=== PATIENT | male | born 1955 | race Caucasian/White ===

== ENCOUNTER 2018-03-14 21:00 | Inpatient (IN) | payer MEDICAID ==
[~2018-03-14] VITALS: Ht 170.2 cm; Wt 86.2 kg
[2018-03-14 21:24] VITALS: BP 156/74
--- NOTE | 2018-03-14 21:24 | NUR ---
TO BED # 6 AMBULATORY, REPORT GIVEN TO MARCI GUTHRIE.
--- NOTE | 2018-03-14 21:45 | NUR ---
PT BIB SON TO ED FOR EVALUATION OF N/V/D X 1 HR. PT STATED ATE LEFT OVER FOOD, THEN STARTED HAVING N/V/D. N/V X8, DIARRHEA X4. PT AAO X4, GCS 15, ABLE TO SPEAK WITH FULL COMPLETE SENTENCES. RESPIATIONS EVEN AND UNLABORED, BL LUNG CLEAR. SKIN WARM/PINK/DRY, +PMSC. ABDOMEN SOFT, NON DISTENDED, ACTIVE BOWEL SOUND X4, VSS, DR. ELAINE MADE AWARE OF PT STATUS. WILL CONTINUE TO MONITOR
[2018-03-14] MEDS ORDERED: NACL 0.9% 1,000 ML IV ONE ×2 (22:14→23:25)
[2018-03-14] MEDS ORDERED: ONDANSETRON 4 MG/2 ML VIAL IVP ONE (22:15)
--- NOTE | 2018-03-14 22:33 | NUR ---
Dr. Rankin evaluating patient at bedside.
[2018-03-14 22:53] LABS: HEMATOCRIT 47.9 % (36-52); HEMOGLOBIN 15.9 g/dL (12.0-18.0); MEAN CORPUSCULAR HEMOGLOBIN 32 pg (27-31); MEAN CORPUSCULAR HGB CONC 33 g/dL (33-37); MEAN CORPUSCULAR VOLUME 95.2 fL (80-94); PLATELET COUNT (AUTO) 250 K/uL (140-450); RED BLOOD CELL COUNT(AUTO) 5.03 MIL/uL (4.20-6.10); RED CELL DISTRIBUTION WIDTH 13.6 % (11.6-13.7); WHITE BLOOD COUNT (AUTO) 16.8 K/uL (4.8-10.8)
[2018-03-14 23:13] LABS: LYMPHOCYTES % (MANUAL) 3 % (20-46); MONOCYTES % (MANUAL) 8 % (5-12)
[2018-03-14 23:17] LABS: ALBUMIN 4.5 g/dL (3.4-5.0); ANION GAP 16.7 (8-16); CARBON DIOXIDE 27.9 mmol/L (21-32); CREATININE 1.3 mg/dL (0.7-1.3); POTASSIUM 4.6 mmol/L (3.5-5.1); TOTAL BILIRUBIN 0.3 mg/dL (0.0-1.0)
--- NOTE | 2018-03-14 23:23 | NUR ---
PT GCS 15, RESPIRATIONS EVEN AND UNLABORED. VSS, STATED NAESEA IMPROVED. WILL CONTINUE TO MONITOR
[2018-03-14] MEDS ORDERED: DICYCLOMINE 20 MG/2 ML VIAL IM ONE (23:25)
--- NOTE | 2018-03-14 23:48 | NUR ---
PT SENT TO CT VIA BED WITH TECH AAOX4
[2018-03-15] MEDS ORDERED: metroNIDAZOLE 500 MG/NS PREMIX 100 ML IV ONE (01:15)
[2018-03-15] MEDS ORDERED: ZOLPIDEM 5 MG TAB PO PRN (01:35)
[2018-03-15] MEDS ORDERED: HYDROcodone/APAP 5/325 MG 1 TAB TAB PO PRN (01:35)
[2018-03-15] MEDS ORDERED: DEXTROSE 50% 50 ML SYR IVP PRN (01:35)
[2018-03-15] MEDS ORDERED: DOCUSATE SODIUM 100 MG GELCAP PO PRN (01:35)
[2018-03-15] MEDS ORDERED: ACETAMINOPHEN 325 MG TAB PO PRN (01:35)
[2018-03-15] MEDS ORDERED: ONDANSETRON 4 MG/2 ML VIAL IM/IVP PRN (01:35)
[2018-03-15] MEDS ORDERED: LORazepam 2 MG/ML VIAL IM/IVP PRN (01:35)
[2018-03-15] MEDS ORDERED: METF1000 PO (01:50)
[2018-03-15] MEDS ORDERED: GLIP10TA12 PO (01:50)
[2018-03-15] MEDS ORDERED: LISI10TA11 PO (01:53)
[2018-03-15] MEDS ORDERED: NACL 0.9% 1,000 ML IV SCH (02:00)
--- NOTE | 2018-03-15 02:15 | NUR ---
Patient will be admitted to care of . Admited to TELE. Will go to room 106B. Belongings list completed. Report to DEENA GUTHRIE.
[2018-03-15 02:16] LABS: PROTHROMBIN TIME 12.3 secs (10.8-13.4)
[2018-03-15] MEDS ORDERED: ALBUTEROL SULFATE/IPRATROPIU 3 ML SOL IH PRN (02:20)
--- NOTE | 2018-03-15 02:30 | NUR ---
RECEIVED REPORT FROM CATALYST OPERATOR GASOLINE FOR CONTINUITY OF CARE. PT IS A/OX4, ON ROOM AIR, PORTUGUESE SPEAKING. PT AMBULATES WITH STEADY GAIT, AND SKIN IS PINK/WARM/DRY AND INTACT. PT IS ABLE TO MAKE NEEDS KNOWN, AND ABLE TO FOLLOW COMMANDS. LUNGS SOUNDS CLEAR, HR EVEN AND REGULAR. PT HAS 20G IV TO RIGHT AC, ASYMPTOMATIC AND INTACT. PT DENIES ANY PAIN AT THE MOMENT. VITAL SIGNS STABLE. NO SIGNS OF DISTRESS NOTED. PT POSITIONED FOR COMFORT. BED RAILS UP X2, BED IN LOWEST POSITION. CALL LIGHT WITHIN REACH. WILL CONTINUE TO MONITOR.
[2018-03-15 02:42] LABS: CHOL/HDL RATIO 2.5 (1-4.5); MAGNESIUM 1.5 mg/dL (1.8-2.4); PHOSPHORUS 4.5 mg/dL (2.5-4.9); THYROID STIMULATING HORMONE 3.21 uIU/mL (0.34-3.74)
[2018-03-15 03:00] VITALS: BP 102/67
[2018-03-15] MEDS ORDERED: MAG SULF 2000 MG/WATER PREMIX 50 ML IV ONE (03:00)
[2018-03-15] MEDS: LEVOFLOXACIN 750 MG/D5W PREMIX 150 ML IV SCH (03:00)
[2018-03-15] MEDS ORDERED: DEXT 5% / NACL 0.9% 500 ML IV ONE (03:00)
[2018-03-15 03:26] LABS: BARBITURATE, URINE NEG. ng/ml (NEG <=200); BENZODIAZEPINE, URINE NEG. ng/mL (NEG <=200); CANNABINOID, URINE NEG. ng/mL (NEG <=50); COCAINE, URINE NEG. ng/mL (NEG <=300); OPIATE, URINE NEG. ng/mL (NEG <=2000); PHENCYCLIDINE SCREEN,URINE NEG. ng/mL (NEG <=25)
[2018-03-15 03:30] LABS: APPEARANCE,URINE CLEAR (CLEAR); BILIRUBIN,URINE NEGATIVE (NEGATIVE); BLOOD, URINE TRACE-L (NEGATIVE); COLOR,URINE YELLOW (YELLOW); LEUKOCYTE ESTERASE ,URINE NEGATIVE (NEGATIVE); NITRITE, URINE NEGATIVE (NEGATIVE); PH,URINE 5.5 (5.0-9.0); UGLUCOSE 3+ (NEGATIVE)
[2018-03-15 03:32] LABS: CALCIUM OXALATE CRYSTALS,UR 0-5 /HPF (None Seen); RBC,URINE 0-5 (RARE) /HPF (0-5); WBC,URINE 0-5 (RARE) /HPF (0-5)
--- NOTE | 2018-03-15 04:00 | NUR ---
VITAL SIGNS STABLE. NO SIGNS OF DISTRESS NOTED. PT POSITIONED FOR COMFORT. BED RAILS UP X2, BED IN LOWEST POSITION. CALL LIGHT WITHIN REACH. WILL CONTINUE TO MONITOR.
[2018-03-15] MEDS ORDERED: PNEUMOCOCCAL VACCINE 23 MCG/0.5 ML VIAL IMVAC PRN (04:15)
--- NOTE | 2018-03-15 05:53 | NUR ---
ASKED PT IF HE HAD A BM YET TO COLLECT STOOL. PT DENIED HAVING BM SINCE 15MIN PRIOR TO ARRIVAL TO UNIT, BUT VERBALIZED THAT HE WILL LET ME KNOW SOON THERE IS SOMETHING TO COLLECT.
--- NOTE | 2018-03-15 05:54 | NUR ---
PATIENT HAS BEEN SCREENED AND CATEGORIZED MODERATE NUTRITION RISK. PATIENT WILL BE SEEN WITHIN 3-5 DAYS OF ADMISSION. 03/17/18-03/19/18 RASHAUN MOCTEZUMA MS, RDN
[2018-03-15] MEDS: INSULIN LISPRO SLIDING SCALE 100 UNITS/ML VIAL SUBQ PRN ×3 (06:08→20:45)
[2018-03-15] MEDS: BLOOD GLUCOSE MONITORING 1 DEV DEV FS SCH ×4 (06:09→20:43)
[2018-03-15] MEDS: metroNIDAZOLE 500 MG/NS PREMIX 100 ML IV SCH ×3 (06:33→23:32)
--- NOTE | 2018-03-15 06:45 | NUR ---
STARTED NEW 22G IV TO RIGHT WRIST.
--- NOTE | 2018-03-15 07:19 | NUR ---
ENDORSED PT TO DAY SHIFT RN FRANCO FOR CONTINUITY OF CARE. PT IN STABLE CONDITION.
[2018-03-15] MEDS: DEXT 5% / NACL 0.45% 1,000 ML IV SCH ×2 (07:30→15:50)
--- NOTE | 2018-03-15 07:30 | NUR ---
RECEIVED PATIENT FROM THE PROFESSIONAL SERVICES SPECIALIST RN BY HIS BEDSIDE. PATIENT IS ALERT AND ORIENTED. PATIENT IS LYING ON THE BED COMFORTABLY WITHOUT ANY COMPLAINT OF PAIN OR DISTRESS AT THIS TIME. IV IS LOCATED ON R WRIST 20G, NO COMPLAINT OF PAIN ON THE SITE. NO REDNESS SEEN. SKIN IS INTACT AND WARM. PATIENT HAS EVEN, UNLABORED RESPIRATION ON ROOM AIR. PATIENT IS ON TELE MONITOR, SKIN INTACT. CHANGED PATIENT'S PERSONAL SOCKS TO HOSPITAL SOCKS FOR HIS PROTECTION. PATIENT HAS BEEN ORIENTED TO THE RN, CALL LIGHT, AND PLAN OF CARE AT THIS TIME.
[2018-03-15 07:31] LABS: BASOPHILS % (AUTO) 0.1 % (0.0-2.0); EOSINOPHILS # (AUTO) 0.1 K/uL (0-0.4); EOSINOPHILS % (AUTO) 0.6 % (0.0-4.0); HEMATOCRIT 39.8 % (36-52); HEMOGLOBIN 13.3 g/dL (12.0-18.0); LYMPHOCYTES # (AUTO) 0.8 K/uL (2.0-11.5); LYMPHOCYTES % (AUTO) 8.8 % (20.5-51.1); MEAN CORPUSCULAR HEMOGLOBIN 32 pg (27-31); MEAN CORPUSCULAR HGB CONC 34 g/dL (33-37); MEAN CORPUSCULAR VOLUME 94.2 fL (80-94); MONOCYTES # (AUTO) 0.8 K/uL (0.8-1.0); NEUTROPHILS # (AUTO) 7.6 K/uL (1.8-7.7); NEUTROPHILS % (AUTO) 81.5 % (42.2-75.2); PLATELET COUNT (AUTO) 231 K/uL (140-450); RED BLOOD CELL COUNT(AUTO) 4.23 MIL/uL (4.20-6.10); RED CELL DISTRIBUTION WIDTH 13.7 % (11.6-13.7); WHITE BLOOD COUNT (AUTO) 9.3 K/uL (4.8-10.8)
[2018-03-15 07:50] VITALS: BP 99/66
--- NOTE | 2018-03-15 07:55 | NUR ---
DR HOFFMAN SPOKE WITH THE PATIENT REGARDING HIS MEAL PLAN. THE MEAL WILL BE SERVED STARTING LUNCH OR DINNER PER DR HOFFMAN. HE ALSO ADVISED THE PATIENT TO ONLY TAKE ICE CHIPS OR VERY SMALL SIPS OF WATER TO REST THE STOMACH.
[2018-03-15] MEDS: LISINOPRIL 10 MG TAB PO SCH (08:50)
[2018-03-15] MEDS: metFORMIN 500 MG TAB PO SCH ×2 (08:51→17:06)
[2018-03-15] MEDS: LACTOBACILLUS RHAMNOSUS GG 1 EACH CAP PO SCH (08:51)
[2018-03-15] MEDS: glipiZIDE 10 MG TAB PO SCH ×2 (08:51→17:06)
[2018-03-15 08:56] LABS: ANION GAP 14.9 (8-16); CARBON DIOXIDE 26.9 mmol/L (21-32); POTASSIUM 4.8 mmol/L (3.5-5.1)
[2018-03-15 08:59] LABS: MAGNESIUM 2.3 mg/dL (1.8-2.4); PHOSPHORUS 3.6 mg/dL (2.5-4.9)
--- NOTE | 2018-03-15 09:00 | NUR ---
ADMINISTERED MORNING MEDS. PT TOLERATED WELL. WILL CONTINUE TO MONITOR PT.
--- NOTE | 2018-03-15 11:43 | NUR ---
PATIENT IS SLEEPING IN THE BED. NO VISITORS PRESENT AT THIS TIME. WILL CONTINUE TO MONITOR THE PATIENT FOR ANY PAIN AND DISCOMFORT.
[2018-03-15 12:05] VITALS: BP 111/68
--- NOTE | 2018-03-15 12:05 | NUR ---
BS 152; HELD INSULIN DUE TO NPO STATUS. BUT WILL CONTINUE MONITOR THE PATIENT.
--- NOTE | 2018-03-15 13:08 | NUR ---
PUT IN ORDERS FOR [facility] DIET. CALLED AND LEFT MESSAGE FOR [facility]NS TO BRING A LATE TRAY FOR PT.
--- NOTE | 2018-03-15 15:55 | NUR ---
ADMINISTERED NEW IVF AND FLAGYL. FAMILY VISITING. NO SIGNS OF DISTRESS. WILL CONTINUE TO MONITOR PT.
[2018-03-15 16:00] VITALS: BP 97/56
--- NOTE | 2018-03-15 16:00 | NUR ---
PATIENT;S BS IS 163. 2 UNITS OF INSULIN COVERAGE WAS ADMINISTERED. PATIENT TOLERATED WELL.
--- NOTE | 2018-03-15 18:00 | NUR ---
PATIENT IS SITTING ON HIS BED WHILE HIS FAMILY IS BY HIS BEDSIDE. PATIENT IS NOT IN ANY DISTRESS OR PAIN AT THIS TIME. WILL CONTINUE TO MONITOR THE PATIENT.
--- NOTE | 2018-03-15 19:31 | NUR ---
ENDORSED PATIENT TO THE NEUROCRITICAL CARE PHYSICIAN NURSE BY HIS BEDSIDE. PATIENT IS IN STABLE CONDITION AND DOES NOT SEEM TO BE IN ANY DISTRESS. DENIES PAIN AT THIS TIME.
--- NOTE | 2018-03-15 19:32 | NUR ---
RECEIVED PT IN STABLE CONDITION FROM AM NURSE. AWAKE,ALERT AND ORIENTED X4. MED SURG PT. WITH NO C/O ANY DISCOMFORT NOR PAIN NOTED. HAS IVF INFUSING WELL ON THE RT WRIST G#22 CLEAR AND PATENT. PLAN OF CARE DISCUSSED AND VERBALIZED UNDERSTANDING. BED ON LOWEST POSITION. FREQUENT ROUNDS NEEDED. CALL LIGHT AND URINAL PLACED WITHIN EASY REACH. WILL CONTINUE TO MONITOR.
--- NOTE | 2018-03-15 20:45 | NUR ---
BLOOD SUGAR WAS CHECKED RESULT 261. INSULIN COVERAGE SUBQ GIVEN ORDERED. HS SNACK PROVIDED. WILL CONTINUE TO MONITOR.
--- NOTE | 2018-03-15 21:30 | NUR ---
MADE ROUNDS. PT ASLEEP. NO S/S OF ANY DISCOMFORT NOTED.
--- NOTE | 2018-03-15 22:30 | NUR ---
JUST MADE ANOTHER ROUNDS. PT AWAKE, ON HIS CELL PHONE. ASKED IF ANY PAIN . DENIES ANY AT THIS TIME.
[2018-03-15 23:30] VITALS: BP 99/65
--- NOTE | 2018-03-15 23:30 | NUR ---
PT AWAKE. NO C/O ANY DISCOMFORT NOR PAIN NOTED. VITAL SIGNS STABLE. WILL CONTINUE TO MONITOR.
--- NOTE | 2018-03-16 01:45 | NUR ---
MADE ROUNDS. PT IS ASLEEP. NO S/S OF ANY DISCOMFORT NOTED.
--- NOTE | 2018-03-16 02:50 | NUR ---
PT IS ASLEEP. ANTIBIOTICS LEVAQUIN IVPB GIVEN.
[2018-03-16] MEDS: LEVOFLOXACIN 750 MG/D5W PREMIX 150 ML IV SCH (02:51)
[2018-03-16] MEDS: DEXT 5% / NACL 0.45% 1,000 ML IV SCH ×2 (03:30→04:57)
--- NOTE | 2018-03-16 04:00 | NUR ---
PT HAS BEEN STABLE DURING THE NIGHT. NO C/O ANY PAIN NOTED.
[2018-03-16] MEDS: BLOOD GLUCOSE MONITORING 1 DEV DEV FS SCH ×2 (06:03→11:14)
[2018-03-16] MEDS: INSULIN LISPRO SLIDING SCALE 100 UNITS/ML VIAL SUBQ PRN ×2 (06:05→12:49)
--- NOTE | 2018-03-16 06:05 | NUR ---
BLOOD SUGAR THIS AM 175. INSULIN COVERAGE GIVEN SUB Q.
[2018-03-16] MEDS: metroNIDAZOLE 500 MG/NS PREMIX 100 ML IV SCH (06:17)
[2018-03-16] MEDS ORDERED: ONDA4ODT1 PO ×2 (06:23→09:09)
--- NOTE | 2018-03-16 07:05 | NUR ---
ENDORSED PT IN STABLE CONDITION TO AM NURSE FOR CONTINUITY OF CARE.
--- NOTE | 2018-03-16 07:30 | NUR ---
PATIENT AWAKE, ALERT. RESPIRATION EVEN, UNLABOR ON ROOM AIR. SKIN DRY AND WARM. IV PATENT AND INTACT. DENIED PAIN, N/V/D AT THIS TIME. PLAN OF CARE WAS DISCUSSED WITH PATIENT. BED AT LOW POSITION, SIDE RAILS UP. CALL LIGHT WITHIN REACH
[2018-03-16 07:54] LABS: BASOPHILS % (AUTO) 0.1 % (0.0-2.0); EOSINOPHILS # (AUTO) 0.1 K/uL (0-0.4); EOSINOPHILS % (AUTO) 1.7 % (0.0-4.0); HEMATOCRIT 38.6 % (36-52); HEMOGLOBIN 12.8 g/dL (12.0-18.0); LYMPHOCYTES # (AUTO) 1.4 K/uL (2.0-11.5); LYMPHOCYTES % (AUTO) 21.5 % (20.5-51.1); MEAN CORPUSCULAR HEMOGLOBIN 32 pg (27-31); MEAN CORPUSCULAR HGB CONC 33 g/dL (33-37); MEAN CORPUSCULAR VOLUME 95.4 fL (80-94); MONOCYTES # (AUTO) 0.6 K/uL (0.8-1.0); MONOCYTES % (AUTO) 9.9 % (1.7-9.3); NEUTROPHILS # (AUTO) 4.3 K/uL (1.8-7.7); NEUTROPHILS % (AUTO) 66.8 % (42.2-75.2); PLATELET COUNT (AUTO) 225 K/uL (140-450); RED BLOOD CELL COUNT(AUTO) 4.05 MIL/uL (4.20-6.10); RED CELL DISTRIBUTION WIDTH 13.7 % (11.6-13.7); WHITE BLOOD COUNT (AUTO) 6.5 K/uL (4.8-10.8)
[2018-03-16 08:00] VITALS: BP 123/66
[2018-03-16 08:17] LABS: ANION GAP 10.3 (8-16); CARBON DIOXIDE 28.6 mmol/L (21-32); CREATININE 0.9 mg/dL (0.7-1.3); POTASSIUM 4.9 mmol/L (3.5-5.1)
[2018-03-16] MEDS: metFORMIN 500 MG TAB PO SCH (08:19)
[2018-03-16] MEDS: LISINOPRIL 10 MG TAB PO SCH (08:20)
[2018-03-16] MEDS: LACTOBACILLUS RHAMNOSUS GG 1 EACH CAP PO SCH (08:20)
[2018-03-16] MEDS: glipiZIDE 10 MG TAB PO SCH (08:20)
[2018-03-16 08:25] LABS: MAGNESIUM 1.8 mg/dL (1.8-2.4); PHOSPHORUS 2.8 mg/dL (2.5-4.9)
--- NOTE | 2018-03-16 10:00 | NUR ---
PATIENT WAS AWAKE, ALERT. RESPIRATION EVEN, UNLABOR ON ROOM AIR. NO DISTRESS NOTED AT THIS TIME.
[2018-03-16] MEDS ORDERED: NACL 0.9% 1,000 ML IV ONE ×2 (11:00→14:30)
--- NOTE | 2018-03-16 12:00 | NUR ---
PATIENT AWAKE, ALERT. RESPIRATION EVEN, UNLABOR ON ROOM AIR. DENIED PAIN, N/V. NO DISTRESS NOTED. FAMILY AT BEDSIDE. CALL LIGHT WITHIN REACH
[2018-03-16] MEDS ORDERED: FAMO-90 PO (14:13)
--- NOTE | 2018-03-16 14:13 | NUR ---
PATIENT AWAKE, ALERT. RESPIRATION EVEN, UNLABOR ON ROOM AIR. NO DISTRESS NOTED AT THIS TIME. FAMILY AT BEDSIDE
[2018-03-16] MEDS ORDERED: FAMOTIDINE 20 MG TAB PO SCH ×2 (14:30→21:00)
[2018-03-16 16:00] VITALS: BP 125/83
--- NOTE | 2018-03-16 16:04 | NUR ---
DISCHARGE INSTRUCTION AND PRESCRIPTION WERE GIVEN AND EXPLAINED TO THE PATIENT. PATIENT VERBALIZED UNDERSTANDING. IV WAS REMOVED, CATHETER INTACT, NO ACTIVE BLEEDING SEEN. ALL BELONGINGS WERE TAKEN WITH THE PATIENT. PATIENT WAS ESCORTED OUT BY STAFF, AMBULATORY WITH STEADY GAIT. PATIENT IS STABLE AT THIS TIME
== END 2018-03-16 16:07 | disposition home or self-care (01) | DRG 720 ==
LOC: MED 21:00 → MTU 03-15 01:32
PROVIDERS: ADMIT General Practice; ATTEND General Practice
PROC: 3E0234Z Introduction of Serum, Toxoid and Vaccine into Muscle, Percutaneous Approach (ICD-10-PCS; principal; 2018-03-15)
DX: A41.9 Sepsis, unspecified organism (principal); N17.0 Acute kidney failure with tubular necrosis; E11.65 Type 2 diabetes mellitus with hyperglycemia; E86.0 Dehydration; I10 Essential (primary) hypertension; E66.9 Obesity, unspecified; A08.4 Viral intestinal infection, unspecified; Z79.899 Other long term (current) drug therapy; Z79.84 Long term (current) use of oral hypoglycemic drugs; Z68.29 Body mass index [BMI] 29.0-29.9, adult; Z23 Encounter for immunization
CPT/HCPCS: 36415; 80048; 80053; 80305; 81001; 82948; 83036; 83605; 83690; 83735; 84100; 84134; 84443; 85025; 85610; 85730; 87040; 87081; 87086; 90732; 93005; 93925; 93970; 96365; 99285; J0500; J1644; J1815; J1956; J2405; J3475; J3490; J7030; J7042; Q0092

== ENCOUNTER 2021-10-07 18:17 | Emergency (ER) | payer MEDICAID ==
[~2021-10-07] VITALS: Ht 170.2 cm; Wt 83.9 kg
[~2021-10-07 18:17] MED LIST: FAMO-90 PO; GLIP10TA12 PO; LISI-486 PO; METF-1274 PO; ONDA-188 PO
[2021-10-07 18:19] VITALS: BP 128/88
--- NOTE | 2021-10-07 18:27 | NUR ---
TYSHAWN GONZALEZ VIA GURNEY TO BED 01.
--- NOTE | 2021-10-07 19:13 | NUR ---
GAVE REPORT TO [place] RIVERA. TRANSFER OF CARE AT THIS TIME.
[2021-10-07] MEDS ORDERED: LIDOCAINE 2% 1000 MG/50 ML VIAL INJ ONE (19:20)
[2021-10-07] MEDS ORDERED: KETOROLAC 15 MG/ML VIAL IVP ONE (19:25)
[2021-10-07 22:21] VITALS: BP 124/84
== END 2021-10-07 22:20 | disposition home or self-care (01) ==
LOC: MED 18:17
DX: S63.281A Dislocation of proximal interphalangeal joint of left index finger, initial encounter (principal); S30.0XXA Contusion of lower back and pelvis, initial encounter; S70.02XA Contusion of left hip, initial encounter; E11.9 Type 2 diabetes mellitus without complications; I10 Essential (primary) hypertension; Z79.899 Other long term (current) drug therapy; W01.198A Fall on same level from slipping, tripping and stumbling with subsequent striking against other object, initial encounter; Y92.89 Other specified places as the place of occurrence of the external cause; Y93.89 Activity, other specified; Y99.8 Other external cause status
CPT/HCPCS: 26770; 72170; 73140; 96374; 99284; J1885; J2001